=== PATIENT | female | born 1990 | race African-American/Black ===

== ENCOUNTER 2021-10-10 19:54 | Emergency (ER) | payer OTHER ==
[~2021-10-10 19:54] MED LIST: FLEXERIL PO; NOHOMEMEDICATIONS; ULTRAM 50MG TAB50 MG PO
== END 2021-10-10 21:04 | disposition left against medical advice (07) ==
LOC: ER 19:54
DX: R06.02 Shortness of breath (principal); Z53.21 Procedure and treatment not carried out due to patient leaving prior to being seen by health care provider